=== PATIENT | female | born 1940 | race Caucasian/White ===

== ENCOUNTER → 2017-10-09 | Outpatient (CLI) | payer MEDICARE, OTHER ==
--- NOTE | 2017-10-09 11:23 | RADIOLOGY IMAGING REPORT ---
FACILITY: [facility] PATIENT NAME: Daisha Vargas : 1940 MR: [id number] V: [id number] EXAM DATE: ORDERING PHYSICIAN: VANI HUNG TECHNOLOGIST: Location: [facility] Patient: Daisha Vargas : 1940 Visit/Account:[id number] Date of Sevice: 10/09/2017 Carotid artery Doppler duplex ultrasound scan. Caty graph history: Right bruit, history of right josé tid endarterectomy, history of two strokes. COMPARISON: None. A color flow Doppler duplex ultrasound scan with spectral analysis was performed on the carotid and v ertebral arteries bilaterally. Measurement of carotid stenosis is based on velocity parameters that correlate the residual internal carotid diameter with [place] Symptomatic Carotid Endarterecto my Trial (NASCET)- based stenosis levels. Right carotid peak systolic velocities are as follows: Superior right ICA - 121 cm/sec. Mid right ICA - 96 cm/sec. Proximal right ICA - 104 cm/sec. Right carotid bulb - 233 cm/sec. Superior right CCA - 192 cm/sec. Mid right CCA- 117 cm/sec. Inferior right CCA- 116 cm/sec. Proximal right ECA- 70 cm/sec. Mid right vertebral- 54 cm/sec. Right ICA/CCA ratio- 1.0 ( normal < 1.5 ). Antegrade right vertebral artery flow- YES. Left carotid peak systolic velocities are as follows: Superior left ICA - 149 cm/sec. Mid left ICA- 121 cm/sec. Proximal left ICA- 120 cm/sec. Left carotid bulb- 111 cm/sec. Superior left CCA- 84 cm/sec. Mid left CCA- 106 cm/sec. Inferior left CCA- 86 cm/sec. Proximal left ECA- 87 cm/sec. Mid left vertebral- 54 cm/sec. Left ICA/CCA ratio- 1.4 ( normal < 1.5). Antegrade left vertebral artery flow- YES. Atherosclerotic plaque is present in the common carotid arteries, carotid bulbs, and proximal interna l and external carotid arteries bilaterally. Velocities are elevated in the right superior common ca rotid artery, right carotid bulb, and left superior internal carotid artery resulting in 50-70% steno ses by visual criteria. IMPRESSION: 50-70% stenoses of the right carotid bulb and superior right common carotid artery. 50-70% stenosis of the superior left internal carotid artery. Report Dictated By: Eliazar Zaragoza MD at 10/09/2017 11:13 AM Report E-Signed By: Eliazar Zaragoza MD at 10/09/2017 11:19 AM WSN:[email or web address]
--- NOTE | 2017-10-10 12:49 | RADIOLOGY IMAGING REPORT ---
FACILITY: [facility] PATIENT NAME: KYE BARRETO : [id number] MR: [id number] V: [id number] EXAM DATE: [id number] ORDERING PHYSICIAN: VANI HUNG TECHNOLOGIST: Marysol Junior EXAMINATION:TWO-DIMENSIONAL ECHOCARDIOGRAPH REASON: 2 STROKES/CAD 2D Measurements (normal values in centimeters) LV endLV endRV endVent.LV PostAorticLeftPercent DiastolicSystolicDiastolicSeptumWallRootAtriumShortening (3.5-5.7)(0.9-2.6)(0.6-1.1)(0.6-1.1)(2.0-3.7)(1.9-4.0)(25-35%) [id number] STROKE VOLUME: 33ML ESTIMATED EJECTION FRACTION:59% PARASTERNAL LONG AXIS: Overall left ventricular systolic function does appear to be normal. Chamber sizes also appear to be normal. There appears to be some mild asymmetric left ventricular thickening but no evidence for any outflow tract obstruction. Mild mitral annular calcification & mild aortic sclerosis was noted. Color examination of the valves in this view: trace of mitral insufficiency. Color examination of the aortic valve was unremarkable. Right ventricle also appears to contract normally. The TAPSE is measured at 1.9 which is normal. Mild amount of tricuspid insufficiency is also noted. PARASTERNAL SHORT AXIS: Again overall left ventricular systolic function appears to be within normal ranges. Aortic valve is trileaflet in configuration & appears to be mildly sclerotic but not stenotic. Color examination of the aortic valve was unremarkable. Color examination of the pulmonic valve was normal. Color examinations of the tricuspid valve reveals a mild to borderline moderate amount of tricuspid insufficiency. The tricuspid regurgitation Vmax was measured 2.6m/sec. APICAL FOUR AND TWO CHAMBER: Normal left ventricular ejection fraction. The patient appears to have a possible pacemaker placed in the right sided heart chambers. No wall motion abnormalities are noted. The aortic valve area & mitral valve area both measure within normal ranges at 2.6 & 2.0cm2 respectively. Trace of mitral insufficiency is noted. Left atrial & right atrial volumes are measured within normal ranges at 22 & 31ml/m2. SUBCOSTAL VIEW: No pericardial effusion was noted. No atrioseptal or ventriculoseptal defects were noted. Mild amount of tricuspid insufficiency is noted. There is pacemaker present in the right sided heart chambers. The ascending aorta measured 3.2cm. There does appear to be some plaquing in the ascending aorta. Doppler examination of the mitral valve in diastole does reveal the A wave > E wave suggesting decrease in diastolic function. OVERALL IMPRESSION: 1. Normal left ventricular ejection fraction of 59% with a Grade 1/4 decrease in diastolic function. 2. Mild left ventricular thickening more along the interventricular septum at 1.2cm. The posterior wall appears to be normal in size. No evidence for any outflow tract obstruction. 3. A trileaflet aortic valve with mild aortic sclerosis but no stenosis & no insufficiency was noted. 4. Trace amount of mitral insufficiency with no mitral stenosis but mild mitral annular calcification. 5. There is a mild to borderline moderate amount of tricuspid insufficiency with estimated right ventricular systolic pressures at 30ml hg which is within normal ranges which includes an estimated right atrial pressure of 3mm Hg. 6. There is some plaquing noted in the ascending aorta. 7. Pacemaker present in the right sided heart chambers. Dictated by: Miguel Sanchez M.D. on 10/10/2017 at 9:26 Transcribed by: PAMELA on 10/10/2017 at 10:36 Approved by: Miguel Sanchez M.D. on 10/10/2017 at 12:46 [facility]
== END ==
LOC: US 02:01
PROVIDERS: ATTEND Internal Medicine
DX: I65.23 Occlusion and stenosis of bilateral carotid arteries (principal); E78.00 Pure hypercholesterolemia, unspecified; I07.1 Rheumatic tricuspid insufficiency; Z95.0 Presence of cardiac pacemaker; I70.0 Atherosclerosis of aorta
CPT/HCPCS: 36415; 82465; 83718; 84478; 93306; 93880

== ENCOUNTER → 2017-10-13 | Outpatient (CLI) | payer MEDICARE, OTHER | LOC: LAB 06:39 | PROVIDERS: ATTEND Internal Medicine | DX: E78.00 Pure hypercholesterolemia, unspecified (principal); N18.4 Chronic kidney disease, stage 4 (severe) ==

== ENCOUNTER → 2017-11-03 | Outpatient (CLI) | payer MEDICARE, OTHER | LOC: LAB 12:54 | PROVIDERS: ATTEND Internal Medicine | DX: E78.5 Hyperlipidemia, unspecified (principal); N18.4 Chronic kidney disease, stage 4 (severe) | CPT/HCPCS: 36415; 82040; 82247; 82310; 82374; 82435; 82565; 82947; 84075; 84132; 84155; 84295; 84450; 84460; 84520 ==

== ENCOUNTER → 2018-12-15 | Outpatient (CLI) | payer MEDICARE, OTHER ==
--- NOTE | 2018-12-15 12:19 | RADIOLOGY IMAGING REPORT ---
FACILITY: [facility] PATIENT NAME: Daisha Vargas : 1940 MR: [id number] V: [id number] EXAM DATE: ORDERING PHYSICIAN: MAMADOU RUEDA TECHNOLOGIST: Location: [facility] [place] Patient: Daisha Vargas : 1940 Visit/Account:[id number] Date of Sevice: 12/15/2018 Technique: CHEST PA LAT HISTORY: Hypercalcemia Comparison studies: None FINDINGS: No acute airspace consolidation. No pleural effusion. Left chest wall pacer and leads are unremarkable. Mild atherosclerotic changes are seen within the thoracic aorta. IMPRESSION: 1. No acute cardiopulmonary process. Report Dictated By: Hans Butler DO at 12/15/2018 12:13 PM Report E-Signed By: Hans Butler DO at 12/15/2018 12:14 PM WSN:[email or web address]
== END ==
LOC: RAD 11:51
PROVIDERS: ATTEND Family Medicine
DX: E83.52 Hypercalcemia (principal)
CPT/HCPCS: 71046

== ENCOUNTER → 2018-12-18 | Outpatient (CLI) | payer MEDICARE, OTHER ==
--- NOTE | 2018-12-18 15:17 | RADIOLOGY IMAGING REPORT ---
FACILITY: [facility] PATIENT NAME: Daisha Vargas : 1940 MR: [id number] V: [id number] EXAM DATE: ORDERING PHYSICIAN: DAVID GAYTAN TECHNOLOGIST: Location: [facility] Patient: Daisha Vargas : 1940 Visit/Account:[id number] Date of Sevice: 12/18/2018 KIDNEYS EXAMINATION: Renal ultrasound. History: UTI, chronic kidney disease stage IV COMPARISON STUDIES: FINDINGS: Kidneys: Right kidney- 9.9 x 5.4 x 5.8 cm Left kidney- 8.3 x 5.6 x 3.2 cm Uniform and symmetric blood flow in each kidney by Doppler ultrasound. Hydronephrosis: none There are numerous cysts seen throughout both kidneys although the largest on the right measures 2.8 cm in diameter. The largest on the left measures 2.3 centers in diameter. In the upper pole of the left kidney there is a 2.2 cm round hypoechoic mass with acoustic enhancement. This may represent an additional cyst although was not ideally visualized. Bladder: Urinary bladder prevoid volume measured 109 mL. Post for residual 5 mL. Bilateral ureteral jets are present. Adjacent to the right UVJ there is a 1.1 x 0.6 x 2.7 cm irregular soft tissue mas s Abdominal aorta and IVC: Aorta and IVC are patent by Doppler ultrasound. IMPRESSION: Numerous bilateral renal cysts as described above In the upper pole the left kidney there is a 2.2 cm round hypoechoic mass with acoustic enhancement. This could represent an additional cyst although could not be well imaged due to location. There is a 1.1 x 0.6 x 2.7 cm irregular soft tissue mass adjacent to the right UVJ within the bladder Report Dictated By: Lenore Durand MD at 12/18/2018 3:05 PM Report E-Signed By: Lenore Durand MD at 12/18/2018 3:12 PM WSN:[email or web address]
== END ==
LOC: US 12:44
PROVIDERS: ATTEND Internal Medicine Nephrology
DX: N28.1 Cyst of kidney, acquired (principal); R19.00 Intra-abdominal and pelvic swelling, mass and lump, unspecified site
CPT/HCPCS: 76705

== ENCOUNTER → 2019-02-05 | Outpatient (REF) | payer MEDICARE, OTHER | LOC: ZZSENDIN 12:48 | PROVIDERS: ATTEND Urology | DX: N39.0 Urinary tract infection, site not specified (principal); B96.1 Klebsiella pneumoniae [K. pneumoniae] as the cause of diseases classified elsewhere | CPT/HCPCS: 81001; 87077; 87088; 87186 ==

== ENCOUNTER → 2019-03-19 | Outpatient (CLI) | payer MEDICARE, OTHER ==
--- NOTE | 2019-03-19 14:05 | RADIOLOGY IMAGING REPORT ---
FACILITY: [facility] PATIENT NAME: Daisha Vargas : 1940 MR: [id number] V: [id number] EXAM DATE: ORDERING PHYSICIAN: DAVID GAYTAN TECHNOLOGIST: Location: [facility] [place] Patient: Daisha Vargas : 1940 Visit/Account:[id number] Date of Sevice: 03/19/2019 KIDNEYS EXAMINATION: Renal ultrasound. History: Chronic kidney disease COMPARISON STUDIES: December 18, 2018 FINDINGS: Kidneys: Right kidney- 9.8 x 5.4 x 5.5 cm Left kidney- 9.2 x 3.9 x 3.8 cm Uniform and symmetric blood flow in each kidney by Doppler ultrasound. Hydronephrosis: none Numerous cysts again identified throughout both kidneys. The largest on the right now measures 3 cm as opposed to 2.8 cm. The largest on the left measures 2.9 cm as opposed to 2.3 cm previously Bladder: Prevoid volume 130.9 mL. The post void residual was 6 mL. Ureteral jets were not identifie d Abdominal aorta and IVC: Aorta and IVC are patent by Doppler ultrasound. IMPRESSION: Bilateral renal cysts are slightly increased in size when compared the prior study Ureteral jets were not identified Report Dictated By: Lenore Durand MD at 03/19/2019 1:43 PM Report E-Signed By: Lenore Durand MD at 03/19/2019 1:58 PM WSN:[email or web address]
== END ==
LOC: US 00:40
PROVIDERS: ATTEND Internal Medicine Nephrology
DX: Z13.9 Encounter for screening, unspecified (principal); N18.4 Chronic kidney disease, stage 4 (severe); I63.10 Cerebral infarction due to embolism of unspecified precerebral artery; R80.9 Proteinuria, unspecified; D50.9 Iron deficiency anemia, unspecified; N39.0 Urinary tract infection, site not specified; N28.1 Cyst of kidney, acquired; I12.9 Hypertensive chronic kidney disease with stage 1 through stage 4 chronic kidney disease, or unspecified chronic kidney disease
CPT/HCPCS: 76705

== ENCOUNTER → 2019-03-22 | Outpatient (CLI) | payer MEDICARE, OTHER | LOC: LAB 12:31 | DX: I12.9 Hypertensive chronic kidney disease with stage 1 through stage 4 chronic kidney disease, or unspecified chronic kidney disease (principal); N18.4 Chronic kidney disease, stage 4 (severe); R80.9 Proteinuria, unspecified; N39.0 Urinary tract infection, site not specified | CPT/HCPCS: 36415; 82040; 82310; 82330; 82374; 82435; 82565; 82570; 82947; 84100; 84132; 84156; 84295; 84520 ==